=== PATIENT | male | born 1970 | race Two or more races ===

== ENCOUNTER 2024-06-25 14:11 | Emergency (ER) | payer MEDICAID, SELFPAY ==
[2024-06-25 14:44] VITALS: BP 137/97; PULSE 72; RESP 20; TEMP 37.2; O2SAT 98
--- NOTE | 2024-06-25 14:51 | EDNOTE_ITS ---
<Statement entered by Susan Kevin MD - 06/25/24 16:03> As co-signing physician, I was present and available for consult prn. I concur with the plan and care as documented by the midlevel provider. Upper Respiratory Inf. RME/HPI General Chief Complaint: Flu Like Symptoms Stated Complaint: COUGH, CONGESTION X YESTERDAY; MEDS RAN OUT Time Seen by Provider: 06/25/24 14:38 Source: patient Arrival date/time: 06/25/24 14:11 54-year-old male presents to the emergency department with several days of generalized body aches, nonproductive cough, fatigue, and flu-like symptoms. He denies shortness of breath, chest pain, nausea, vomiting, or diarrhea. No known COVID-19 or influenza exposure. No recent travel. Reports feeling feverish at home but did not check temperature. No recent sick contacts reported. Mode of arrival: ambulatory Limitations: no limitations Related Data Home Medications ?Medication ?Instructions ?Recorded ?Confirmed cetirizine 10 mg tablet 10 mg PO QDAY 07/28/2307/27 Previous Rx's ?Medication ?Instructions ?Recorded ibuprofen 800 mg tablet (IBU) 800 mg PO Q8H #20 tabs 0 10/20/23 ibuprofen 800 mg tablet 800 mg PO Q8H PRN pain #30 t abs 06/25/24 oseltamivir 75 mg capsule (Tamiflu) 75 mg PO BID 5 day s #10 caps 06/25/24 Allergies Allergy/AdvReac Type Severity Reaction Status Date / Time No Known Allergies Allergy Verified 06/25/24 14:25 Review of Systems Review of Systems Systems Reviewed: All systems reviewed, normal except as documented Narrative Review of Systems: Gen: No fever, no chills, no weight loss, + body ache EYES: No discharge, no visual changes, no pain HEENT: No ear pain, + congestion, no sore throat PULM: No shortness of breath, +cough, no congestion CV: No chest pain, no dyspnea on exertion, no palpitations GI: No nausea, no vomiting, no diarrhea, no pain, no constipation : No frequency, no urgency,? no dysuria Musc/skel: No joint pain, no back pain Skin: No rash? Psyc: No hallucinations, no depression Heme/Lymph: No easy bleeding or bruising tendencies Neuro: No weakness, no headache ED Exam Narrative Physical exam: General: Alert, mildly ill-appearing, no acute distress HEENT: Mucous membranes slightly dry, no nasal discharge Chest/Lungs: Clear to auscultation bilaterally, no wheezes, rales, or rhonchi Cardiac: Regular rate and rhythm, no murmurs Neuro: Alert and oriented ?3 Skin: No rash, no cyanosis Extremities: No edema General Limitations: Present no limitations General appearance: Present alert Course Quality Measures none Vital Signs Vital signs: Vital Signs Temperature 98.9 F 06/25/24 14:44 Pulse Rate 72 06/25/24 14:44 Respiratory Rate 20 06/25/24 14:44 Blood Pressure 137/97 H 06/25/24 14:44 Pulse Oximetry (%) 98 06/25/24 14:44 Oxygen Delivery Method Room Air 06/25/24 14:44 Upper Respiratory Infection MDM Narrative MDM Narrative:: 54-year-old healthy male + fever, cough, sore throat, malaise consistent with viral illness such as Influenza. Positive rapid influenza test in ER. not chronically ill or immunosuppressed. History and exam I have lower suspicion for any emergent cardiopulmonary, Otolaryngeal and immunosupressing related infectious causes Given patient symptomatic, start Tamilflue 75 mg p.o. twice daily 5 days and conservative self-care and techniques to reduce spread for this suspected transient and self-resolving illness. Advised will discharge with strict return precautions. Follow up with primary care provider within 24 hours. Patient data External records reviewed:: [facility] previous records Clinical information provided by:: patient Social determinants that could affect healthcare access:: none Patient has the following chronic illnesses:: no How is presenting disease/condition affected by chronic disease/condition?: no chronic disease Evaluation data The following diagnostics were reviewed and interpreted by me:: other (specify) Lab and/or radiology exams considered but not ordered:: Sitter chest x-ray however lung sounds clear to auscultation. Interpretation Summary: INFluenza +B Medications / Prescriptions Medications or Prescriptions considered but not ordered:: No Medication administrations:: No Consultations Consultation(s) initiated? (list below): No Diagnosis Upper Respiratory Differential Diagnosis: upper respiratory infection, viral infection, bronchitis, influenza and pharyngitis Most likely diagnosis given after review of the tests above:: Viral infection, flu Admission Indicated Admission indicated?: not indicated Admission Request Was there a request for admission?: No Disposition Plan Disposition Plan: Discharge Discharge Attestation Discharge Attestation: The patient and all family members were given an opportunity to ask questions and understood the discharge instructions. Discharge instructions specifically effects, indications for sooner follow up or return to the emergency department, and the expected course of current diagnosis. Patient condition: Stable Discharge Plan Plan Patient Disposition: HOME (Self Care) Patient condition on transfer: Stable Prescriptions/Referrals Prescriptions/Med Rec: New oseltamivir [Tamiflu] 75 mg capsule 75 mg PO BID 5 Days Qty: 10 0RF ibuprofen 800 mg tablet 800 mg PO Q8H PRN (Reason: pain) Qty: 30 0RF No Action cetirizine 10 mg tablet 10 mg PO QDAY ibuprofen [IBU] 800 mg tablet 800 mg PO Q8H Qty: 20 0RF Problem List Clinical Impression: Influenza Patient/Caregiver Discharge Instructions Discharge Activity: activity as tolerated Education Materials: ED Influenza (Adult) Additional Instructions: Your rapid influenza test was positive. Start Tamiflu, antipyretics to pharmacy. Advised to increase hydration, warm tea and chicken rice soup can fire and safety helper for throat pain. Please follow-up with your clinic 3-day follow-up. If you develop any type of respiratory distress or change in condition please go immediately to nearest emergency department Print Language: Kazakh Stand Alone Forms: Melissa Award Info., Patient Portal Info Letter PA/THAO Supervising Physician PA/THAO Supervising Physician: dr. kevin
== END 2024-06-25 15:00 | disposition home or self-care (01) ==
LOC: SERX 15:25
PROVIDERS: Emergency Provider Emergency Medicine; PCP Family Medicine
DX: J10.1 Influenza due to other identified influenza virus with other respiratory manifestations (principal)
CPT/HCPCS: 99281

== ENCOUNTER 2024-12-13 12:01 | Emergency (ER) | payer MEDICAID, SELFPAY ==
[2024-12-13 12:02] VITALS: BMI 29.4
[2024-12-13 12:46] VITALS: BP 146/91; PULSE 95; RESP 17; TEMP 37.2; O2SAT 96
--- NOTE | 2024-12-13 12:52 | XR_ITS ---
Examination: CT soft tissue neck, with intravenous contrast. 2-D coronal reconstructions. 2-D sagittal reconstructions. Date and time of exam :December 13, 2024 1618 hrs. Indications: Sore throat difficulty swallowing right-sided neck and facial swelling and pain beginning 2 days ago. CTDI: vol (mGy):12.5 DLP: (mGycm):366 Technique: 1.25 mm axial sections of the neck of the obtained. Coronal and sagittal reconstructions have been obtained. Intravenous contrast administered 50 cc Isovue-370. Low dose protocols were performed. One or more of the following dose reduction techniques were used; automated exposure control, adjustment of the mA and/or KV according to patient size, use of iterative reconstruction technique. Findings: Symmetrical nasopharynx Significantly enlarged soft tissue right tonsil with 18 mm right tonsillar abscess Bilateral carotid triangle lymph nodes, the largest on the right side 12 mm on the left side 10 mm Mild enlargement right submandibular gland, clinical correlation advised Subtle enhancement in the right supraglottic region, axial image 53, measuring 11 mm Epiglottis is mildly thickened No prevertebral soft tissue prominence Impression: Findings most consistent with right tonsillar abscess, 18 mm with reactive cervical lymphadenopathy However, subtle enhancement in the right supraglottic region, 11 mm If symptoms persist post antibiotic therapy, follow-up CT soft tissue neck post contrast is strongly advised to exclude underlying necrotic tumor in the right tonsil
--- NOTE | 2024-12-13 12:52 | XR_ITS ---
Examination: CT middle inner ear, without contrast. 2-D coronal reconstructions. 2-D sagittal reconstructions. Date and time of exam: December 13, 2024 1618 hrs. Indications: Right-sided facial swelling difficulty swallowing neck pain sore throat beginning 2 days ago CTDI: vol (mGy): 16.2 DLP: (mGycm):143 Technique: Multiple 1.0 mm axial sections of the middle inner ears bilaterally. High-resolution 64 slice scanner utilized. 2-D coronal reconstructions 2-D sagittal reconstructions Low dose protocols were performed. One or more of the following dose reduction techniques were used; automated exposure control, adjustment of the mA and/or KV according to patient size, use of iterative reconstruction technique. Findings: Axial sections of the right demonstrate moderately reduced mastoid aeration. Jugular fossa and carotid canal do not appear remarkable. No deformity of the ossicles. Porus acusticus internus does not exhibit erosion. Cochlear apparatus unremarkable. Semicircular canals normal. External auditory canal open. Coronal reconstructions demonstrate no erosion of the scutum. No soft tissue mass in the attic or Prussak's space is seen. Ossicular mass intact. Axial sections of the left demonstrate moderately reduced mastoid aeration. Jugular fossa and carotid canal do not appear remarkable. No deformity of the ossicles. Porus acusticus internus does not exhibit erosion. Cochlear apparatus unremarkable. Semicircular canals normal. External auditory canal open Coronal reconstructions demonstrate no erosion of the scutum. No soft tissue mass in the attic or Prussak's space is seen. Ossicular mass intact. Roof of the mastoid air cells appear intact bilaterally. Impression: Lateral moderate chronic mastoiditis Negative for acute mastoiditis Negative for otitis externa, negative for otitis media Negative for cholesteatoma
--- NOTE | 2024-12-13 12:53 | PD.EDRME ---
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 A comprehensive ED assessment and evaluation of the patient, analysis of all test results, and completion of the medical decision making process will be conducted by additional ED providers. Chief Complaint: Dental/Oral/Throat Time Seen by Provider: 12/13/24 12:21 Vital signs: Vital Signs Temperature 99.0 F 12/13/24 12:46 Pulse Rate 95 12/13/24 12:46 Respiratory Rate 17 12/13/24 12:46 Blood Pressure 146/91 H 12/13/24 12:46 Pulse Oximetry (%) 96 12/13/24 12:46 Vital signs reviewed by provider: Yes
[2024-12-13 13:34] LABS: Strep A Rapid Negative (Negative)
[2024-12-13 13:56] LABS: Basophils # (Auto) 0.0 Thou/mm3 (0.0-0.2); Basophils % (Auto) 0 % (0-2.5); Eosinophils # (Auto) 0.0 Thou/mm3 (0.0-0.5); Eosinophils % (Auto) 0 % (0-10); Hematocrit 47.2 % (41.0-53.0); Hemoglobin 16.4 g/dL (13.5-16.0); Immature Granulocytes Auto 0.07 Thou/mm3 (0.00-0.00); Lymphocytes # (Auto) 1.6 Thou/mm3 (1.0-4.8); Lymphocytes % (Auto) 9 % (10-50); Mean Corpuscular HGB Conc 34.7 g/dl (31.0-37.0); Mean Corpuscular Hemoglobin 30.5 pg (25.0-35.0); Mean Corpuscular Volume 88 fL (80-100); Monocytes # (Auto) 1.5 Thou/mm3 (0.0-0.8); Monocytes % (Auto) 9 % (0-12); Neutrophils # (Auto) 13.9 Thou/mm3 (1.8-7.7); Neutrophils % (Auto) 81 % (37-80); Nucleated Red Blood Cell # 0.00 Thou/mm3 (0.00-0.00); Nucleated Red Blood Cell % 0 /100 WBC (0); Platelet Count 252 Thou/mm3 (140-440); RDW Standard Deviation 42.7 fL (35.1-43.9); Red Blood Count 5.37 Miln/mm3 (4.50-5.90); White Blood Count 17.1 Thou/mm3 (3.8-10.6)
[2024-12-13 14:07] LABS: Alanine Aminotransferase 12 U/L (10-49); Albumin, Serum 5.2 gm/dL (3.5-5.0); Albumin/Globulin Ratio 1.7 (1.2-2.2); Alkaline Phosphatase 54 U/L (46-116); Anion Gap 11 (7-16); Aspartate Amino Transferase 16 U/L (0-34); BUN/Creatinine Ratio 10 Ratio (12-20); Bilirubin,Total 1.6 mg/dL (0.3-1.2); Blood Urea Nitrogen 10 mg/dL (9-23); Calcium 10.2 mg/dL (8.3-10.6); Calcium (Corrected) 10.2 mg/dL (8.5-10.1); Carbon Dioxide 27.8 mMol/L (20.0-31.0); Chloride 100 mMol/L (98-107); Creatinine (Component) 1.0 mg/dL (0.6-1.3); Estimated Creatinine Clearance 93.1 mL/min (>60); Globulin 3.1 gm/dL (2.3-3.5); Glucose 121 mg/dL (74-106); Osmolality,Calculated 277 (275-295); Potassium 3.7 mMol/L (3.4-5.1); Sodium 139 mMol/L (136-145); Total Protein 8.3 gm/dL (5.7-8.2); eGFR > 60 See Note
--- NOTE | 2024-12-13 18:21 | EDNOTE_ITS ---
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 A comprehensive ED assessment and evaluation of the patient, analysis of all test results, and completion of the medical decision making process will be conducted by additional ED providers. DR. RUBALCAVA MAIN ED EVALUATION: Patient presenting with right posterior pharyngeal pain or progressive nature x 48 hours with noted right anterior neck pain. Patient reports pain with swallowing and mild difficulty breathing. Reports subjective fever, although denies chills. No nausea or vomiting. PMH: Negative. PSH: Negative. SH: Non-smoker, non-drinker, no illicit drug use. Related Data Home Medications ?Medication ?Instructions ?Recorded ?Confirmed cetirizine 10 mg tablet 10 mg PO QDAY 07/28/2307/27 Previous Rx's ?Medication ?Instructions ?Recorded ibuprofen 800 mg tablet (IBU) 800 mg PO Q8H #20 tabs 0 10/20/23 ibuprofen 800 mg tablet 800 mg PO Q8H PRN pain #30 t abs 06/25/24 acetaminophen 120 mg-codeine 12 10 ml PO Q8H PRN pain #200 mL 12/13/24 mg/5 mL (5 mL) oral solution clindamycin palmitate HCl 75 mg/5 300 mg (20 mL) PO TI D 10 days #600 12/13/24 mL oral solution (Cleocin mL Pediatric) ibuprofen 100 mg/5 mL oral 400 mg (20 mL) PO Q8H PRN s welling 12/13/24 suspension (Children's Advil) #473 mL prednisolone 15 mg/5 mL oral 45 mg (15 mL) PO QDAY 5 d ays #75 mL 12/13/24 solution Allergies Allergy/AdvReac Type Severity Reaction Status Date / Time No Known Allergies Allergy Verified 12/13/24 12:05 Review of Systems Review of Systems Systems Reviewed: All systems reviewed, normal except as documented Past Medical History Past Medical History ENT: Positive Deafness ED Exam Narrative Physical exam: GEN. APPEARANCE: The patient is alert awake oriented X-3 in mild distress, lying down comfortably, does not look ill/toxic. Patient has good eye contact. Patient is cooperative. C/o right posterior pharygeal pain. VITALS: All vitals were reviewed and the pulse ox is 96% on room air which is normal according to my interpretation. HEENT: Normocephalic, atraumatic. Pupils are equal and reactive. Oral mucosa is moist. Patent Nares. Oropharynx with 2+ injection, no soft palate edema, no tonsillar hypertrophy, no exudates, slight crowding and tolerating secretions with difficulty. NECK: Supple, with prominence and tenderness in the right submandibular region, no thyromegaly, no meningismus, no JVD, no step offs CHEST: Symmetrical, atraumatic, and with equal expansion , Nontender on palpation no deformity and no crepitus. CARDIOVASCULAR: Heart regular rhythm no murmur or gallop rub or extra beats. LUNGS: Clear to auscultation bilaterally with symmetrical chest rise. No laboring tachypnea or wheezing. No intercostal subcostal retraction. No rales and no rhonchi. ABDOMEN: Soft, flat, nontender to palpation, no guarding or rebound tenderness. There are no abnormal masses palpated. Active and normal bowel sounds. EXTREMITIES: Nontender. No edema. No cyanosis. Patient is able to move all 4 extremities well, with full ROM and good CSM. SKIN: Warm and dry, no jaundice or rashes noted. MUSCULOSKELETAL: No lubar or midline bony tenderness. There is no CVA tenderness. No paraspinal muscle spasm or tenderness. NEURO: Patient is PEREIRA x 4, Cranial nerves II through XII grossly intact. There is no focal neurologic deficits noted. GCS is 15, PNS and DOCUMENTATION ENGINEER appear grossly intact. PSYCHIATRIC: Patient is in normal mood and affect, cooperative, no SI or HI or hallucinations. General Limitations: Present other (Deaf) Course Quality Measures none Orders Category Date Time Status CT Screening NOW Care 12/13/24 12:[address] ear mid-inner w Stat Exams 12/13/24 12:[address] soft tissue neck w con Stat Exams 12/13/24 12:52 Completed CBC Stat Lab 12/13/24 13:32 Completed CBC [CBC] Stat Lab 12/13/24 18:41 Completed CMP [Comprehensive Metabolic Panel] Stat Lab 12/13/24 13:32 Completed Strep A Rapid Stat Lab 12/13/24 13:03 Completed Urinalysis, C/S if Indicated Stat Lab 12/13/24 18:32 Ordered Clindamycin 900Mg Ivpb [Cleocin/D5w Ivpb] 900 mg Med 12/13/24 18:32 Discontinued Pre-Mixed [Pre-mixed Bag] 1 bag IV X1 Dexamethasone Inj [Decadron Inj] Med 12/13/24 18:45 Discontinued 10 mg IV X1 ONE Ketorolac Inj [Toradol Inj] Med 12/13/24 18:32 Discontinued 30 mg IVP X1 ONE Morphine* Inj Med 12/13/24 18:32 Active 4 mg IVP Q1H PRN Prochlorperazine Inj [Compazine Inj] Med 12/13/24 18:32 Discontinued 5 mg IV X1 ONE Sodium Chloride 0.9% 1000 ml [Ns] 1,000 ml Med 12/13/24 18:32 Discontinued IV 999 mls/hr cefTRIAXone/D5w 1gm IV premix [Rocephin/D5w 1gm IV Med 12/13/24 18:32 Discontinued premix] 1 gm in 50 ml IV X1 Vital Signs Vital signs: Vital Signs Temperature 99.0 F 12/13/24 12:46 Pulse Rate 95 12/13/24 12:46 Respiratory Rate 17 12/13/24 12:46 Blood Pressure 146/91 H 12/13/24 12:46 Pulse Oximetry (%) 96 12/13/24 12:46 Discharge Plan Plan Patient Disposition: HOME (Self Care) Discharge Disposition comment: stable Prescriptions/Referrals Prescriptions/Med Rec: New clindamycin palmitate HCl [Cleocin Pediatric] 75 mg/5 mL recon soln 300 mg PO TID 10 Days Qty: 600 0RF prednisolone 15 mg/5 mL solution 45 mg PO QDAY 5 Days Qty: 75 0RF acetaminophen-codeine 120 mg-12 mg /5 mL (5 mL) solution 10 ml PO Q8H PRN (Reason: pain) Qty: 200 0RF ibuprofen [Children's Advil] 100 mg/5 mL suspension 400 mg PO Q8H PRN (Reason: swelling) Qty: 473 0RF No Action cetirizine 10 mg tablet 10 mg PO QDAY ibuprofen 800 mg tablet 800 mg PO Q8H PRN (Reason: pain) Qty: 30 0RF ibuprofen [IBU] 800 mg tablet 800 mg PO Q8H Qty: 20 0RF Referrals: Nick Renteria MD [Primary Care Provider, Family Practice] - In 1 week Problem List Clinical Impression: Peritonsillar abscess Patient/Caregiver Discharge Instructions Discharge Activity: activity as tolerated Additional Instructions: Drink copious amounts of ice water, take medication as directed, follow-up with current ENT clinic and return if worsening i.e. progressive difficulty swallowing, persistently high fevers, difficulty breathing or worsening illness Print Language: Amharic Stand Alone Forms: Melissa Award Info., Patient Portal Info Letter MDM Narrative [facility] hospital course: Scribe Attestation: Tonya Ramirez, nica scribing for and in the presence of Dr. Rubalcava. Provider Notation: Although this document has been carefully reviewed, there may still be some phonetic and other typographical errors. These errors are purely grammatical due to imperfections in the software program and should not be construed in any way to compromise the substance of the patient's medical care during this visit. Patient presenting with right posterior pharyngeal pain or progressive nature x 48 hours with noted right anterior neck pain. Patient reports pain with swallowing and mild difficulty breathing. Please see PE findings. Laboratory markings including CBC demonstrates elevated WBC of 17 K, hemoconcentration with hemoglobin of 16.3 and noted left-shift without bandemia. Rapid strep negative. Serum chemistries are essential unremarkable excluding mildly elevated calcium of 10.2 and total bilirubin of 1.6. Patient was hydrated with NS to correct volume deficit. Treated with combination dual-antibiotics, IV steroids and narcotic analgesics/anti-emetics with marked clinical improvement. CT demonstrates evidence of right tonsilar abscess measuring 18 mm with reactive cervical lymphadenopathy. There was additional edema of the supraglottic region. Orbit sella CT demonstrates evidence of chronic mastoiditis. On secondary evaluation patient appears comfortable with subjective improvement and tolerating secretions. After extensive observation patient is considered stable for discharge. Patient will be prescribed antibiotics, PO steroids, PO NSAIDs, and narcotic analgesics. Patient given referral to [facility] clinic for which he is instructed to contact for F/U appointment. Precautionary instructions issued. Clinical Information Provided by patient Medical Records Reviewed [facility] Reviewed prior ED records from 06/25/24. Patient was seen for Influenza. Meds/Rx Considered, not Ordered None Labs/Rad/Tests considered, not Ordered None Chronic Illness/Social Conditions which may negatively complicate care or outcome(s)-explain: other (Deaf) EKG EKG not done Lab Interpretation Labs: interpreted by me and see narrative above Imaging Imaging interpretation: interpreted by me and see narrative above Radiology reports / interpretation(s): RADIOLOGY Soft Tissue Neck CT: Findings: Symmetrical nasopharynx Significantly enlarged soft tissue right tonsil with 18 mm right tonsillar abscess Bilateral carotid triangle lymph nodes, the largest on the right side 12 mm on the left side 10 mm Mild enlargement right submandibular gland, clinical correlation advised Subtle enhancement in the right supraglottic region, axial image 53, measuring 11 mm Epiglottis is mildly thickened No prevertebral soft tissue prominence Impression: Findings most consistent with right tonsillar abscess, 18 mm with reactive cervical lymphadenopathy However, subtle enhancement in the right supraglottic region, 11 mm If symptoms persist post antibiotic therapy, follow-up CT soft tissue neck post contrast is strongly advised to exclude underlying necrotic tumor in the right tonsil Orbit Sella Inner CT: Findings: Axial sections of the right demonstrate moderately reduced mastoid aeration. Jugular fossa and carotid canal do not appear remarkable. No deformity of the ossicles. Porus acusticus internus does not exhibit erosion. Cochlear apparatus unremarkable. Semicircular canals normal. External auditory canal open. Coronal reconstructions demonstrate no erosion of the scutum. No soft tissue mass in the attic or Prussak's space is seen. Ossicular mass intact. Axial sections of the left demonstrate moderately reduced mastoid aeration. Jugular fossa and carotid canal do not appear remarkable. No deformity of the ossicles. Porus acusticus internus does not exhibit erosion. Cochlear apparatus unremarkable. Semicircular canals normal. External auditory canal open Coronal reconstructions demonstrate no erosion of the scutum. No soft tissue mass in the attic or Prussak's space is seen. Ossicular mass intact. Roof of the mastoid air cells appear intact bilaterally. Impression: Lateral moderate chronic mastoiditis Negative for acute mastoiditis Negative for otitis externa, negative for otitis media Negative for cholesteatoma Medication Administration(s) Medication Administration History Morphine Sulfate (Morphine Sulf Inj 4 Mg/Ml Vial) 4 mg IVP Q1H PRN PRN Reason: PAIN 1-6 (mild-mod Discontinued Medications Dexamethasone Sodium Phosphate (Dexamethasone Sod Phos Inj 10 Mg/Ml Vial) 10 mg IV X1 ONE Stop: 12/13/24 18:46 Last Admin: 12/13/24 20:16 Dose: 10 mg Documented By: JONATHAN Sodium Chloride (Ns) 1,000 mls @ 999 mls/hr IV .Q1H1M ONE Stop: 12/13/24 19:32 Last Infusion: 12/13/24 21:26 Dose: Infused Documented By: Admin: 12/13/24 20:13 Dose: 999 mls/hr Documented By: DT Ceftriaxone Sodium/Dextrose (Rocephin/D5w 1gm Iv Premix) 1 gm in 50 mls @ 100 mls/hr IV X1 ONE Stop: 12/13/24 19:01 Last Infusion: 12/13/24 20:45 Dose: Infused Documented By: Admin: 12/13/24 20:15 Dose: 100 mls/hr Documented By: DT Clindamycin Phosphate 900 mg/ (IV Miscellaneous Supplies) 50 mls @ 50 mls/hr IV X1 ONE Stop: 12/13/24 19:31 Last Admin: 12/13/24 20:59 Dose: 50 mls/hr Documented By: SANIYA Ketorolac Tromethamine (Ketorolac Inj 30 Mg/Ml Vial) 30 mg IVP X1 ONE Stop: 12/13/24 18:33 Last Admin: 12/13/24 20:14 Dose: 30 mg Documented By: DT Prochlorperazine Edisylate (Prochlorperazine Inj 5 Mg/Ml Vial 2 Ml) 5 mg IV X1 ONE; Protocol Stop: 12/13/24 18:33 Last Admin: 12/13/24 20:17 Dose: 5 mg Documented By: DT See above if any Diagnosis Differential diagnosis: Strep pharyngitis, Thyroglossal duct cyst, Salivary gland tumor Most likely dx, and/or detailed dx discussion: Peritonsillar abscess Dispositon Disposition: Discharge Home
[2024-12-13 18:52] LABS: Basophils # (Auto) 0.0 Thou/mm3 (0.0-0.2); Basophils % (Auto) 0 % (0-2.5); Eosinophils # (Auto) 0.0 Thou/mm3 (0.0-0.5); Eosinophils % (Auto) 0 % (0-10); Hematocrit 46.6 % (41.0-53.0); Hemoglobin 16.3 g/dL (13.5-16.0); Immature Granulocytes Auto 0.07 Thou/mm3 (0.00-0.00); Lymphocytes # (Auto) 2.0 Thou/mm3 (1.0-4.8); Lymphocytes % (Auto) 11 % (10-50); Mean Corpuscular HGB Conc 35.0 g/dl (31.0-37.0); Mean Corpuscular Hemoglobin 30.8 pg (25.0-35.0); Mean Corpuscular Volume 88 fL (80-100); Monocytes # (Auto) 1.6 Thou/mm3 (0.0-0.8); Monocytes % (Auto) 9 % (0-12); Neutrophils # (Auto) 13.9 Thou/mm3 (1.8-7.7); Neutrophils % (Auto) 79 % (37-80); Nucleated Red Blood Cell # 0.00 Thou/mm3 (0.00-0.00); Nucleated Red Blood Cell % 0 /100 WBC (0); Platelet Count 250 Thou/mm3 (140-440); RDW Standard Deviation 42.6 fL (35.1-43.9); Red Blood Count 5.29 Miln/mm3 (4.50-5.90); White Blood Count 17.5 Thou/mm3 (3.8-10.6)
[2024-12-13 20:02] VITALS: BP 145/89; PULSE 97; RESP 18; TEMP 38; O2SAT 95
[2024-12-13] MEDS: SODIUM CHLORIDE 0.9% 1000 ML 1,000 ML 999 ML IV (20:13)
[2024-12-13 20:14] VITALS: TEMP 38
[2024-12-13] MEDS: KETOROLAC INJ 30 MG/ML VIAL IVP (20:14)
[2024-12-13] MEDS: cefTRIAXone/D5w 1gm IV premix 1 GM/50 ML BAG IV (20:15)
[2024-12-13] MEDS: DEXAMETHASONE SOD PHOS INJ 10 MG/ML VIAL IV (20:16)
[2024-12-13] MEDS: PROCHLORPERAZINE INJ 5 MG/ML VIAL 2 ML IV (20:17)
--- NOTE | 2024-12-13 20:30 | PC.NURSE ---
THIS RN USED [facility] SPECIALIST [employer] [id number] TO COMMUNICATE WITH PATIENT.
[2024-12-13] MEDS: CLINDAMYCIN 900MG IVPB 900 MG in PRE-MIXED 1 BAG 50 MG IV (20:59)
[2024-12-13 21:49] VITALS: BP 126/62; PULSE 75; RESP 14; TEMP 37.2; O2SAT 99
[2024-12-13 23:14] VITALS: RESP 16
== END 2024-12-13 23:14 | disposition home or self-care (01) ==
PROVIDERS: Nurse Practitioner Family; Emergency Provider Emergency Medicine; PCP Family Medicine
DX: J36 Peritonsillar abscess (principal); H70.10 Chronic mastoiditis, unspecified ear; R59.0 Localized enlarged lymph nodes
CPT/HCPCS: 36415; 70481; 70491; 80053; 81001; 85025; 87651; 96361; 96365; 96375; 99284; A4649; J0696; J0736; J0780; J1100; J1885; J7030; Q9967

== ENCOUNTER 2025-02-15 15:11 | Emergency (ER) | payer MEDICAID, SELFPAY ==
[2025-02-15 15:12] VITALS: BP 163/98; RESP 25; TEMP 36.4; O2SAT 96
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
[2025-02-15 15:24] VITALS: PULSE 112; O2SAT 97
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
== END 2025-02-15 18:00 | disposition home or self-care (01) ==
PROVIDERS: Emergency Provider Emergency Medicine; PCP Family Medicine
DX: S50.11XA Contusion of right forearm, initial encounter (principal); S80.02XA Contusion of left knee, initial encounter; V89.2XXA Person injured in unspecified motor-vehicle accident, traffic, initial encounter; Y93.55 Activity, bike riding
CPT/HCPCS: 71045; 73090; 73110; 73562; 99282